=== PATIENT | male | born 1945 | race Caucasian/White ===

== ENCOUNTER 2017-05-24 08:10 | Emergency (ER) | payer MEDICARE, BC ==
--- NOTE | 2017-05-24 08:24 | EDM.PDOC ---
ED HPI GENERAL MEDICAL PROBLEM - General Chief Complaint: Wound Recheck Stated Complaint: [id number] HERNA SURGERY LAST WEEK. BLEEDING Time Seen by Provider: 05/24/17 08:24 Source of Information: Reports: Patient, Family, RN, RN Notes Reviewed History Limitations: Reports: No Limitations - History of Present Illness INITIAL COMMENTS - FREE TEXT/NARRATIVE: Patient arrives by POV with a history that on 05/15/17 recurrent right inguinal hernia by Dr. Vaughn. Patient presents with complaint of postop swelling and redness with drainage of bloody fluid x1 this morning. Onset: Today Location: Reports: Abdomen Quality: Reports: Ache Severity: Moderate Improves with: Reports: None Worsens with: Reports: None Associated Symptoms: Reports: No Other Symptoms - Related Data Allergies Allergy/AdvReac Type Severity Reaction Status Date / Time No Known Allergies Allergy Unverified 03/06/15 09:44 Home Meds: Home Meds Aspirin [Ecotrin] 81 mg PO DAILY 04/08/17 [History] Losartan [Cozaar] 50 mg PO BID 04/08/17 [History] Metoprolol Tartrate [Metoprolol Tartrate] 50 mg PO BID 04/08/17 [History] Simvastatin [Simvastatin] 40 mg PO BEDTIME 04/08/17 [History] Past Medical History - Past Surgical History GI Surgical History: Reports: Hernia, Inguinal (on 05/15/[address] Vaughn) Social & Family History - Family History Family Medical History: Noncontributory ED ROS GENERAL - Review of Systems Review Of Systems: ROS reveals no pertinent complaints other than HPI. ED EXAM, SKIN/RASH Exam: See Below Exam Limited By: No Limitations Head: Atraumatic, Normocephalic Neck: Normal Inspection, Supple, Non-Tender, Full Range of Motion Respiratory/Chest: No Respiratory Distress Cardiovascular: Normal Peripheral Pulses, Regular Rate, Rhythm, No Edema, No Gallop, No JVD, No Murmur, No Rub GI/Abdominal: Other (normal except right inguinal surgical incision intact with recent dried blood present. Moderate swelling and erythema, no increased warmth. ) (Male) Exam: No Hernia, Normal Inspection, Normal Prostate, Circumcised Rectal (Males) Exam: Deferred Back Exam: Normal Inspection, Full Range of Motion, NT Extremities: Normal Inspection, Normal Range of Motion, Non-Tender, No Pedal Edema, Normal Capillary Refill Neurological: Alert, Oriented, CN II-XII Intact, Normal Cognition, Normal Gait, Normal Reflexes, No Motor/Sensory Deficits Psychiatric: Normal Affect, Normal Mood Skin: Warm, Dry, Intact, Normal Color, No Rash Course - Vital Signs Last Recorded V/S: Last Vital Signs Temp 36.6 C 05/24/17 08:10 Pulse 87 05/24/17 08:10 Resp 16 05/24/17 08:10 BP 173/90 H 05/24/17 08:10 Pulse Ox 92 L 05/24/17 08:10 - Orders/Labs/Meds Labs: Laboratory Tests 05/24/17 05/24/17 05/24/17 Range/Units 08:33 08:33 08:33 WBC 7.6 (5.0-10.0) 10^3/uL RBC 4.44 L (4.6-6.2) 10^6/uL Hgb 14.0 (14.0-18.0) g/dL Hct 42.9 (40.0-54.0) % MCV 96.6 (80-100) fL MCH 31.5 (27.0-34.0) pg MCHC 32.6 L (33.0-35.0) g/dL Plt Count 346 (150-450) 10^3/uL Neut % (Auto) 77.5 H (42.2-75.2) % Lymph % (Auto) 12.3 L (20.5-50.1) % [place] % (Auto) 8.5 H (2-8) % Eos % (Auto) 1.3 (1.0-3.0) % Baso % (Auto) 0.4 (0.0-1.0) % PT 10.3 (9.0-12.0) SEC INR 1.0 (0.9-1.2) APTT 27.9 (22.0-34.0) SEC Sodium 141 (135-145) mmol/L Potassium 4.5 (3.6-5.0) mmol/L Chloride 102 (101-111) mmol/L Carbon Dioxide 29.0 (21.0-31.0) mmol/L Anion Gap 14.5 BUN 18 (7-18) mg/dL Creatinine 0.9 (0.6-1.3) mg/dL Est Cr Clr Drug Dosing 66.64 mL/min Estimated GFR (MDRD) > 60 BUN/Creatinine Ratio 20.00 Glucose 111 H (74-105) mg/dL Calcium 9.7 (8.4-10.2) mg/dl Total Bilirubin 1.0 (0.2-1.0) mg/dL AST 18 (10-42) IU/L ALT 12 (10-60) IU/L Alkaline Phosphatase 59 (42-121) IU/L Total Protein 6.7 (6.7-8.2) g/dl Albumin 3.3 (3.2-5.5) g/dl Globulin 3.4 Albumin/Globulin Ratio 0.97 Urine Color (YELLOW) Urine Appearance (CLEAR) Urine pH (5.0-9.0) Ur Specific [place] (1.005-1.030) Urine Protein (NEGATIVE) Urine Glucose (UA) (NEGATIVE) Urine Ketones (NEGATIVE) Urine Occult Blood (NEGATIVE) Urine Nitrite (NEGATIVE) Urine Bilirubin (NEGATIVE) Urine Urobilinogen (0.2-1.0) mg/dL Ur Leukocyte Esterase (NEGATIVE) Urine RBC /HPF Urine WBC (0-5/HPF) /HPF Ur Epithelial Cells /HPF Urine Bacteria (0-FEW/HPF) /HPF Urine Mucus /LPF 05/24/17 Range/Units 09:28 WBC (5.0-10.0) 10^3/uL RBC (4.6-6.2) 10^6/uL Hgb (14.0-18.0) g/dL Hct (40.0-54.0) % MCV (80-100) fL MCH (27.0-34.0) pg MCHC (33.0-35.0) g/dL Plt Count (150-450) 10^3/uL Neut % (Auto) (42.2-75.2) % Lymph % (Auto) (20.5-50.1) % Hutch[place] % (Auto) (2-8) % Eos % (Auto) (1.0-3.0) % Baso % (Auto) (0.0-1.0) % PT (9.0-12.0) SEC INR (0.9-1.2) APTT (22.0-34.0) SEC Sodium (135-145) mmol/L Potassium (3.6-5.0) mmol/L Chloride (101-111) mmol/L Carbon Dioxide (21.0-31.0) mmol/L Anion Gap BUN (7-18) mg/dL Creatinine (0.6-1.3) mg/dL Est Cr Clr Drug Dosing mL/min Estimated GFR (MDRD) BUN/Creatinine Ratio Glucose (74-105) mg/dL Calcium (8.4-10.2) mg/dl Total Bilirubin (0.2-1.0) mg/dL AST (10-42) IU/L ALT (10-60) IU/L Alkaline Phosphatase (42-121) IU/L Total Protein (6.7-8.2) g/dl Albumin (3.2-5.5) g/dl Globulin Albumin/Globulin Ratio Urine Color Yellow (YELLOW) Urine Appearance Clear (CLEAR) Urine pH 6.5 (5.0-9.0) Ur Specific [place] 1.010 (1.005-1.030) Urine Protein Negative (NEGATIVE) Urine Glucose (UA) Negative (NEGATIVE) Urine Ketones Negative (NEGATIVE) Urine Occult Blood Moderate H (NEGATIVE) Urine Nitrite Negative (NEGATIVE) Urine Bilirubin Negative (NEGATIVE) Urine Urobilinogen 1.0 (0.2-1.0) mg/dL Ur Leukocyte Esterase Negative (NEGATIVE) Urine RBC 0-5 /HPF Urine WBC 0-5 (0-5/HPF) /HPF Ur Epithelial Cells Rare /HPF Urine Bacteria Rare (0-FEW/HPF) /HPF Urine Mucus Rare /LPF - Re-Assessments/Exams Free Text/Narrative Re-Assessment/Exam: 05/24/17 10:[address] Howard, he advised to have patient apply cold compresses and follow up in surgery clinic on 05/27/17, for reevaluation. Departure - Departure Time of Disposition: 10:39 Disposition: Home, Self-Care 01 Condition: Fair Clinical Impression: Postoperative hematoma Qualifiers: Surgical complication system/body Area: subcutaneous tissue Procedure type: non -dermatologic Qualified Code(s): L76.32 - Postprocedural hematoma of skin and subcutaneous tissue following other procedure - Discharge Information Instructions: Wound Dehiscence, [id number], Hematoma Forms: ED Department Discharge Additional Instructions: Apply cold compresses or ice packs to the surgical site. Call Dr. Vaughn's office early Friday, May.27 for a same day appointment. Return to ER if worse at any time.
[2017-05-24 08:31] VITALS: BP 173/90
[2017-05-24 08:58] LABS: CHLORIDE,CL 102 mmol/L (101-111); SODIUM,NA 141 mmol/L (135-145)
== END 2017-05-24 11:10 | disposition home or self-care (01) ==
LOC: DL.ED 08:10
DX: L76.32 Postprocedural hematoma of skin and subcutaneous tissue following other procedure (principal); Z79.82 Long term (current) use of aspirin; Z98.890 Other specified postprocedural states
CPT/HCPCS: 36415; 80053; 81001; 85025; 85610; 85730; 99283

== ENCOUNTER → 2021-01-10 | Day surgery (SDC) | payer MEDICARE, BC ==
[~2021-01-10] MED LIST: Acetaminophen 325 MG Tab PO PRN; Acetaminophen/Codeine 300-30 MG Tab PO PRN; Dexamethasone 4 MG/ML SDV IV ONE; Midazolam 1 MG/ML 2 ML SDV IV ONE; Ondansetron 4 MG/2 ML SDV IVPUSH PRN; Sodium Chloride 0.9% 10 ML Syringe IV ONE; Timolol Maleate 0.5% Ophth Soln 5 ML Bottle EYERT ONE
[2021-01-10] MEDS: Povidone-Iodine 5% Sterile Ophth Soln 30 ML Bottle EYERT ONE ×2 (07:41→08:54)
[2021-01-10] MEDS: Proparacaine 0.5% Ophth Soln 15 ML Bottle EYERT ONE (07:41)
[2021-01-10] MEDS: Moxifloxacin 0.5% Ophth Soln 3 ML Bottle EYERT ONE (07:42)
[2021-01-10] MEDS: Tropicamide 1% Ophth Soln 15 ML Bottle EYERT ONE (07:42)
[2021-01-10] MEDS: Phenylephrine 10% Ophth Soln 5 ML Bot EYERT ONE (07:43)
[2021-01-10] MEDS: Cataract Ophth Solution EYERT ONE (07:46)
[2021-01-10] MEDS: Sodium Chloride 0.9% 10 ML Syringe FLUSH PRN (07:47)
[2021-01-10] MEDS: Phenylephrine 10% Ophth Soln 5 ML Bot EYERT PRN (08:24)
[2021-01-10] MEDS: Tetracaine HCl/PF 0.5% 4 ML Bottle EYERT ONE (08:53)
[2021-01-10] MEDS: Lidocaine 1% 30 ML SDV ONE (08:54)
[2021-01-10] MEDS: Apraclonidine 0.5% Ophth Soln 5 ML Bot EYERT ONE (08:54)
[2021-01-10] MEDS: Balanced Salt Solution Ophth Irrig 500 ML Bottle IOCULAR ONE (08:55)
[2021-01-10] MEDS: Diclofenac Sodium 0.1% Ophth Soln 5 ML Bottle EYERT ONE (08:55)
[2021-01-10] MEDS: Chondroitin Sulfate/Hyaluronate Sodium Ophth Inj 0.75 ML Syringe EYERT ONE (08:55)
[2021-01-10] MEDS: Vancomycin 500 MG SDV ONE (08:55)
[2021-01-10] MEDS: Dexamethasone/Neomycin/Polymyxin B Ophth Oint 3.5 GM Tube EYERT ONE (08:55)
[2021-01-10] MEDS: Carbachol 0.01% Intraocular 1.5 ML Vial EYERT ONE (09:01)
[2021-01-10] MEDS: Chondroitin Sulfate/Hyaluronate Sodium Ophth Inj 0.5 ML Syringe IOCULAR ONE (09:01)
[2021-01-10] MEDS: Dexamethasone 4 MG/ML SDV ONE (09:02)
[2021-01-10 11:29] VITALS: BP 133/56; PULSE 64
--- NOTE | 2021-01-10 12:55 | OR ---
DATE: 01/10/2021 PREOPERATIVE DIAGNOSES: 1. Visually significant cataract. 2. Primary open angle glaucoma. INDICATION: Mr. Paulson was seen in the clinic. He has complained of a slow progressive decrease in vision. His examination revealed visually significant mixed cataract. He has difficulty with multiple activities of daily living. Examination also revealed mild primary open-angle glaucoma. He is symptomatic and requested cataract surgery. I explained options, offered cataract surgery, and I explained risks including, but not limited to infection, retinal detachment, loss of vision, need for additional surgery, and risks associated with anesthesia. We discussed implant options. He has requested a toric implant. I recommended surgery with MIGS, micro (minimally) invasive glaucoma. PROCEDURES PERFORMED: 1. Extracapsular cataract extraction with posterior chamber intraocular lens implant. 2. Hydrus stent inserted/aborted secondary to patient fixation. DESCRIPTION OF PROCEDURE: The patient was prepped and draped in a sterile fashion and topical anesthesia was applied. Attention was placed on the operative eye. A sterile lid speculum was placed to allow operative exposure. Paracentesis was made temporal. Intracameral lidocaine was administered. Viscoelastic was injected. A full-thickness corneal incision was made using the trapezoidal blade. Bent needle cystotome was then used to make a small pedro in the anterior capsule and a 360-degree curvilinear capsulorrhexis was created. Nucleus was then hydrodissected and hydrodelinated using balanced saline solution. Nucleus was then decompressed centrally and rotated and noted to be free of adhesions. Nucleus was then removed using the phacoemulsification handpiece. Additional viscoelastic was then injected into the capsular bag and the intraocular lens was inserted into the capsular bag. At the end of the cataract procedure, Mr. Paulson's head was repositioned 30 degrees to the left. Miochol was injected into the anterior chamber to promote pupillary contraction. Additional Viscoat was then injected. Corneal prism was then placed onto the cornea. Trabecular meshwork was visualized. The Hydrus stent was entered into the anterior chamber. Mr. Paulson had very significant difficulty with fixation and the Hydrus stent was not able to be placed. I removed the stent and injector, repositioned the patient's eye. The viscoelastic was then aspirated from the anterior chamber. Wound and paracentesis sites were hydrated. Intraocular lens was inspected, noted to be clear and well centered. Intraocular pressure was assessed and found to be in the high normal range. Wound and paracentesis sites were Nyasia negative. Postoperative medications were placed. Sterile patch and shield were placed over the eye. The patient was awakened from light sedation and transported to the postoperative recovery area having tolerated the procedure well. [facility] /[id number]
== END | disposition home or self-care (01) ==
LOC: DL.SDS 07:20
PROVIDERS: ATTEND Ophthalmology
DX: H26.8 Other specified cataract (principal); H40.1111 Primary open-angle glaucoma, right eye, mild stage; E78.5 Hyperlipidemia, unspecified; I10 Essential (primary) hypertension; J44.9 Chronic obstructive pulmonary disease, unspecified; Z88.8 Allergy status to other drugs, medicaments and biological substances; Z86.73 Personal history of transient ischemic attack (TIA), and cerebral infarction without residual deficits; Z87.891 Personal history of nicotine dependence; Z98.890 Other specified postprocedural states
CPT/HCPCS: 00142; A9270-GY; J1100; J2250; J3370; V2632; V2787-GY

== ENCOUNTER 2022-11-21 09:37 | Inpatient (IN) | payer MEDICARE, BC ==
[2022-11-21 10:54] LABS: ANION GAP 9.9 mEq/L (7-13)
[2022-11-21] MEDS ORDERED: Diltiazem 25 MG/5 ML SDV IVPUSH ONE (10:57)
[2022-11-21 11:12] LABS: CORONAVIRUS COVID-19 NAA NEGATIVE (NEGATIVE); RESPIRATORY SYNCYTIAL VIR NAA NEGATIVE (NEGATIVE)
[2022-11-21] MEDS ORDERED: Albuterol 0.083% 2.5 MG/3 ML Neb Soln NEB PRN (12:29)
[2022-11-21] MEDS ORDERED: Docusate Sodium 100 MG Cap PO PRN (12:29)
[2022-11-21] MEDS ORDERED: Ondansetron 4 MG/2 ML SDV IVPUSH PRN (12:29)
[2022-11-21] MEDS ORDERED: Acetaminophen 325 MG Tab PO PRN (12:29)
[2022-11-21] MEDS ORDERED: Meclizine 12.5 MG Tab PO PRN (12:57)
[2022-11-21] MEDS ORDERED: Iopamidol 755 Mg/ML 100 ML Bottle IVPUSH ONE (12:57)
[2022-11-21] MEDS ORDERED: ClonazePAM 0.5 MG Tab PO PRN (12:57)
[2022-11-21] MEDS: Apixaban 5 MG Tab PO SCH ×2 (14:09→21:02)
[2022-11-21] MEDS: methylPREDNISolone Sodium Succinate 40 MG/1 ML SDV IVPUSH SCH ×2 (14:09→21:04)
[2022-11-21] MEDS: Diltiazem IR 30 MG Tab PO SCH ×2 (14:09→21:03)
[2022-11-21] MEDS: Amoxicillin/Clavulanate K 875-125 MG Tab PO SCH ×2 (14:09→21:02)
[2022-11-21] MEDS: Sodium Chloride 0.9% 10 ML Syringe FLUSH PRN ×2 (14:10→21:04)
[2022-11-21 15:30] LABS: PTT,PARTIAL THROMBOPLSTIN TIME 30.9 SEC (22.0-34.0)
[2022-11-21] MEDS ORDERED: QUEtiapine 25 MG Tab PO SCH (21:00)
[2022-11-21] MEDS ORDERED: Donepezil 10 MG Tab PO SCH (21:00)
[2022-11-21] MEDS ORDERED: Simvastatin 40 MG Tab PO SCH (21:00)
[2022-11-21] MEDS ORDERED: Doxazosin 2 MG Tab PO SCH (21:00)
[2022-11-21] MEDS ORDERED: Latanoprost 0.005% Ophth Soln 2.5 ML Bottle EYERT SCH (21:00)
[2022-11-21] MEDS: Memantine 10 MG Tab PO SCH (21:03)
[2022-11-21] MEDS: Timolol Maleate 0.5% Ophth Soln 5 ML Bottle EYERT SCH (21:23)
[2022-11-22] MEDS: Diltiazem IR 30 MG Tab PO SCH (05:02)
[2022-11-22] MEDS: methylPREDNISolone Sodium Succinate 40 MG/1 ML SDV IVPUSH SCH (05:39)
[2022-11-22] MEDS ORDERED: Diltiazem 120 MG Cap.CD PO STA (08:18)
[2022-11-22] MEDS: Amoxicillin/Clavulanate K 875-125 MG Tab PO SCH (08:20)
[2022-11-22] MEDS: Memantine 10 MG Tab PO SCH (08:20)
[2022-11-22] MEDS: Apixaban 5 MG Tab PO SCH (08:21)
[2022-11-22] MEDS: Timolol Maleate 0.5% Ophth Soln 5 ML Bottle EYERT SCH (08:22)
[2022-11-22] MEDS ORDERED: Non-Formulary Medication 1 Each (Cetirizine [Zyrtec] 10 MG Tablet) PO SCH (09:00)
[2022-11-22] MEDS ORDERED: Citalopram 20 MG Tab PO SCH (09:00)
[2022-11-22 12:33] VITALS: BP 122/78; PULSE 106
[2022-11-22] MEDS ORDERED: atorvaSTATin 20 MG Tab PO SCH (21:00)
[2022-11-23] MEDS ORDERED: predniSONE 20 MG Tab PO SCH (08:00)
[2022-11-23] MEDS ORDERED: Diltiazem 120 MG Cap.CD PO SCH (09:00)
== END 2022-11-22 16:01 | disposition home health service (06) | DRG 308 ==
LOC: DL.ED 09:37 → DL.MS 11:10 → DL.ED 12:00 → UNDOADMIN 12:23 → DL.MS 12:23 → UNDODISIN 11-22 16:01
PROVIDERS: ADMIT Internal Medicine; ATTEND Internal Medicine
DX: I48.91 Unspecified atrial fibrillation (principal); J96.21 Acute and chronic respiratory failure with hypoxia; J44.1 Chronic obstructive pulmonary disease with (acute) exacerbation; Z20.822 Contact with and (suspected) exposure to COVID-19; F03.90 Unspecified dementia, unspecified severity, without behavioral disturbance, psychotic disturbance, mood disturbance, and anxiety; W01.0XXA Fall on same level from slipping, tripping and stumbling without subsequent striking against object, initial encounter; I10 Essential (primary) hypertension; M19.90 Unspecified osteoarthritis, unspecified site; E78.00 Pure hypercholesterolemia, unspecified; F41.9 Anxiety disorder, unspecified; K52.9 Noninfective gastroenteritis and colitis, unspecified; Z98.52 Vasectomy status; Z79.82 Long term (current) use of aspirin; Z88.8 Allergy status to other drugs, medicaments and biological substances; Z98.890 Other specified postprocedural states; Y92.89 Other specified places as the place of occurrence of the external cause; Z79.899 Other long term (current) drug therapy; Z86.73 Personal history of transient ischemic attack (TIA), and cerebral infarction without residual deficits; Z94.7 Corneal transplant status; Z87.891 Personal history of nicotine dependence
CPT/HCPCS: 0241U; 36415; 71045; 71275; 80053; 83605; 83735; 83880; 84443; 84484; 85025; 85610; 85730; 87040; 93005; 93010; 96374; 99223; 99239; 99285; 99285-25; A9270-GY; J2920; J3490; Q9967